=== PATIENT | male | born 1970 | race African-American/Black ===

== ENCOUNTER 2023-12-08 13:54 | Emergency (ER) | payer MEDICAID ==
[~2023-12-08] VITALS: Ht 182.9 cm; Wt 170.1 kg
[2023-12-08 13:55] VITALS: BP_SYST 138; PULSE 70; RESP 20; TEMP 97.8; O2SAT 96
[2023-12-08] MEDS ORDERED: IBUPROFEN 200 MG TABLET ONE (14:36)
[2023-12-08] MEDS: IBUPROFEN 800 MG TABLET PO ONE (14:37)
[2023-12-08] MEDS ORDERED: DICL20GE TP (16:26)
[2023-12-08] MEDS ORDERED: IBUP-1969 PO (16:26)
== END 2023-12-08 16:37 | disposition home or self-care (01) ==
LOC: SED 13:54
DX: S46.911A Strain of unspecified muscle, fascia and tendon at shoulder and upper arm level, right arm, initial encounter (principal); W18.39XA Other fall on same level, initial encounter; Y93.89 Activity, other specified; Y92.89 Other specified places as the place of occurrence of the external cause; Y99.8 Other external cause status; Z88.8 Allergy status to other drugs, medicaments and biological substances
CPT/HCPCS: 73000; 73030; 99284